=== PATIENT | male | born 1970 | race African-American/Black ===

== ENCOUNTER 2021-07-10 19:09 | Inpatient (IN) | payer MEDICARE, MEDICAID, SELFPAY ==
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
[2021-07-10 22:35] VITALS: BP 181/102; PULSE 65; RESP 20; TEMP 36.6; O2SAT 100
[2021-07-10 22:55] VITALS: BP 181/102; PULSE 65
[2021-07-10] MEDS: amLODIPine Besylate 5 MG TABLET PO (22:55)
[2021-07-11] VITALS (8 sets, daily range): BP systolic 118–147; BP diastolic 69–107; PULSE 68–92; RESP 16–19; TEMP 36.1–36.7; O2SAT 97–100
[2021-07-11] MEDS: Prazosin HCL 1 MG CAPSULE 4 MG PO ×2 (00:30→20:21)
[2021-07-11] MEDS: QUEtiapine Fumarate 300 MG TABLET PO (00:31)
[2021-07-11] MEDS: Metoprolol Succinate ER 100 MG TAB.ER.24H PO ×2 (00:31→20:30)
[2021-07-11] MEDS: Mirtazapine 30 MG TABLET PO (00:32)
[2021-07-11] MEDS: Mirtazapine 15 MG TABLET PO (00:32)
[2021-07-11] MEDS: hydrOXYzine HCL 25 MG TABLET PO ×2 (02:34→22:51)
[2021-07-11] MEDS: Omeprazole 20 MG CAPSULE.DR PO (08:28)
[2021-07-11] MEDS: Benztropine Mesylate 0.5 MG TABLET PO ×2 (08:29→20:21)
[2021-07-11] MEDS: Gabapentin 400 MG CAPSULE 800 MG PO ×3 (08:29→20:21)
[2021-07-11] MEDS: hydroCHLOROthiazide 25 MG TABLET PO (08:34)
[2021-07-11] MEDS: Acetaminophen 325 MG TABLET 650 MG PO ×2 (09:58→18:23)
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
[2021-07-11] MEDS: Divalproex Sodium ER 250 MG TAB.ER.24H PO (20:21)
[2021-07-11] MEDS: traZODone HCL 50 MG TABLET 150 MG PO (20:21)
[2021-07-11] MEDS: OLANZapine 5 MG TABLET PO (20:21)
[2021-07-12 06:00] VITALS: BP 138/87; PULSE 79; RESP 20; TEMP 36.6; O2SAT 100
[2021-07-12] MEDS: Omeprazole 20 MG CAPSULE.DR PO (06:39)
[2021-07-12 08:30] VITALS: BP 134/73; PULSE 63; RESP 18; TEMP 36.6; O2SAT 98
[2021-07-12] MEDS: Gabapentin 400 MG CAPSULE 800 MG PO ×3 (08:57→20:49)
[2021-07-12] MEDS: hydroCHLOROthiazide 25 MG TABLET PO (08:58)
--- NOTE | 2021-07-12 12:50 | P.PNPSI_ITS ---
Subjective Subjective Date of Service: 07/12/21 Reason For Visit: Depression Interim History: med adherence. Is napping during the day and irritable at times. Endorses hallucinations. Chart reviewed. Noted suicidal gestures and substance use. Today reports that he is feeling slightly better. Sleep improving. Feels safe. Reports suicidal thoughts are lessening as are auditory hallucinations. Feels positive for medication changes that include Seroquel to Depakote, Remeron to trazodone and also Prolixin to Zyprexa. Medication Compliance: Yes Side effects from medications: No Review of Systems Acute medical concerns: No Review of Systems Review of Systems Noncontributory Mental Status Exam Mental Status Exam Narrative: pleasant upon awakening. Organized. Alert and oriented. Restricted affect. Reports intermittent suicidal thoughts but no plans or intent and feels safe and supported on the unit. No HI. Endorses hallucinations that are improving. Reports feeling safe. No overt paranoia. Insight judgment okay Diagnostics Vital Signs (24Hr): Vital Signs - 24 hr 07/11/21 18:00 07/11/21 20:21 07/11/21 20:30 Temperature 96.9 F Pulse Rate 84 84 84 Respiratory Rate 19 Blood Pressure 140/99 H 140/99 H 140/99 H Pulse Oximetry 100 07/12/21 06:00 Temperature 98 F Pulse Rate 79 Respiratory Rate 20 Blood Pressure 138/87 Pulse Oximetry 100 Medications Medications Current Medications Generic Name Dose Route Start Last Admin Trade Name Freq PRN Reason Stop Dose Admin Acetaminophen 650 mg 07/10/21 19:50 07/11/21 18:23 Acetaminophen 325 Mg Tablet PO 650 mg Q6H PRN Administration Headache/Pain Mild Scale (1-3) Al Hydroxide/Mg Hydroxide 30 ml 07/10/21 19:50 Magnesium Hydrox/Alum Hydrox 30 Ml Oral.Susp PO Q6H PRN Heartburn/Nausea Chlorpromazine HCl 50 mg 07/11/21 18:21 Chlorpromazine Hcl 25 Mg Tablet PO BEDTIME PRN agitation, sleep Divalproex Sodium 250 mg 07/11/21 21:00 07/11/21 20:21 Divalproex Sodium Er 250 Mg Tab.Er.24h PO 250 mg BEDTIME PALMER Administration Gabapentin 800 mg 07/11/21 09:00 07/12/21 08:57 Gabapentin 400 Mg Capsule PO 800 mg TID PALMER Administration Hydrochlorothiazide 25 mg 07/11/21 09:00 07/12/21 08:58 Hydrochlorothiazide 25 Mg Tablet PO 25 mg DAILY PALMER Administration Protocol Hydroxyzine HCl 25 mg 07/10/21 19:50 07/11/21 22:51 Hydroxyzine Hcl 25 Mg Tablet PO 25 mg BEDTIME PRN Administration Anxiety Magnesium Hydroxide 30 ml 07/10/21 19:50 Milk Of Magnesia 30 Ml Oral.Susp PO DAILY PRN Constipation Metoprolol Succinate 100 mg 07/10/21 23:00 07/11/21 20:30 Metoprolol Succinate Er 100 Mg Tab.Er.24h PO 100 mg BEDTIME PALMER Administration Protocol Nicotine Polacrilex 2 mg 07/10/21 19:50 Nicotine Polacrilex 2 Mg Gum BUCCAL Q2H PRN Nicotine Cravings Olanzapine 5 mg 07/11/21 21:00 07/11/21 20:21 Olanzapine 5 Mg Tablet PO 5 mg BEDTIME PALMER Administration Omeprazole 20 mg 07/11/21 06:30 07/12/21 06:39 Omeprazole 20 Mg Capsule. PO 20 mg DAILY@0630 PALMER Administration Prazosin HCl 4 mg 07/11/21 21:00 07/11/21 20:21 Prazosin Hcl 1 Mg Capsule PO 4 mg BEDTIME PALMER Administration Protocol Trazodone HCl 150 mg 07/11/21 21:00 07/11/21 20:21 Trazodone Hcl 50 Mg Tablet PO 150 mg BEDTIME PALMER Administration Allergies Allergies Allergy/AdvReac Type Severity Reaction Status Date / Time lisinopril Allergy Unknown unknown Uncoded 07/10/21 19:50 Assessment & Plan Assessment & Plan (1) Bipolar 1 disorder, depressed: Status: Acute Code(s): F31.9 - Bipolar disorder, unspecified (2) Unspecified schizophrenia, chronic condition with acute exacerbation: Status: Acute Code(s): F20.9 - Schizophrenia, unspecified Assessment and Plan: Dae is a 51 y.o. Male who carries a diagnosis of unspecified bipolar disorder, history of depression, and psychosis. 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 He is currently presenting with sx of depression, SI without plan or intent, anxiety, AH, hyposomnia, and agitation. He has a hx of non-adherence with OP services, has not been on his meds in several days, last filled at ED. Recent crack cocaine use. Says he wants to be put back on trazodone and depakote as these have helped with sleep in the past. Plan: 1. Discontinue seroquel 300 mg QHS due to reported lack of efficacy. Start depakote ER 250 mg QHS, titrate up as tolerated for dose response for mood stab ility. 2. Discontinue remeron 45 mg due to reported lack of efficacy. Start trazodone 150 mg QHS for insomnia. 3. Discontinue prolixin 10 mg QAM due to non-adherence, reported lack of efficacy. Discontinue cogentin 0.5 mg BID. Start zyprexa 5 mg QHS, titrate up as tolerated for dose response for AH. 4. Continue prazosin 4 mg QHS for hyperarousal 5. Continue gabapentin 800 mg TID for mood stability, says they help with AH 6. start thorazine 50 mg QHS PRN for agitation, poor sleep. 7. Monitor response to medications. Monitor for safety in the milieu. Discharge on stabilization. Patient seen. Chart reviewed. Discussed with team. Obtain collateral contact info?as needed 07/12/2021: No changes to treatment plan as per primary team Greater than 50% of the session was spent on counseling and/or coordination of care Reason for contiued inpatient stay Substantial Risk for: harm to self
[2021-07-12] MEDS: Acetaminophen 325 MG TABLET 650 MG PO ×2 (13:10→21:43)
[2021-07-12 18:00] VITALS: BP 137/81; PULSE 88; RESP 16; TEMP 36.1
[2021-07-12 20:48] VITALS: BP 137/81; PULSE 88
[2021-07-12] MEDS: Prazosin HCL 1 MG CAPSULE 4 MG PO (20:48)
[2021-07-12 20:49] VITALS: BP 137/81; PULSE 88
[2021-07-12] MEDS: Divalproex Sodium ER 250 MG TAB.ER.24H PO (20:49)
[2021-07-12] MEDS: Metoprolol Succinate ER 100 MG TAB.ER.24H PO (20:49)
[2021-07-12] MEDS: OLANZapine 5 MG TABLET PO (20:49)
[2021-07-12] MEDS: traZODone HCL 50 MG TABLET 150 MG PO (20:49)
[2021-07-12] MEDS: hydrOXYzine HCL 25 MG TABLET PO (20:57)
[2021-07-12] MEDS: chlorproMAZINE HCl 25 MG TABLET 50 MG PO (23:06)
[2021-07-13] MEDS: Omeprazole 20 MG CAPSULE.DR PO (05:49)
[2021-07-13 05:58] VITALS: BP 111/59; PULSE 63; RESP 20; TEMP 36.5; O2SAT 99
[2021-07-13] MEDS: hydroCHLOROthiazide 25 MG TABLET PO (08:17)
[2021-07-13] MEDS: Gabapentin 400 MG CAPSULE 800 MG PO ×3 (08:17→19:28)
[2021-07-13] MEDS: Acetaminophen 325 MG TABLET 650 MG PO ×2 (08:24→19:32)
[2021-07-13 08:29] VITALS: BP 122/85; PULSE 62; RESP 16; TEMP 36.5; O2SAT 98
--- NOTE | 2021-07-13 11:46 | HO.PSYCHPN ---
Subjective Subjective Date of Service: 07/13/21 Reason For Visit: Depression Interim History: med adherence. Is napping during the day and less irritable. Endorses hallucinations, but feeling slightly better. Sleep poor with nighthmares- discussed prazosin. Feels safe. Reports suicidal thoughts are lessening as are auditory hallucinations. Feels positive for medication changes that include Seroquel to Depakote, Remeron to trazodone and also Prolixin to Zyprexa. Medication Compliance: Yes Side effects from medications: No Review of Systems Acute medical concerns: No Review of Systems Review of Systems Noncontributory Yes all other systems are reviewed and are negative Mental Status Exam Mental Status Exam Narrative: pleasant upon awakening. Organized. Alert and oriented. Restricted affect. Reports intermittent suicidal thoughts but no plans or intent and feels safe and supported on the unit. No HI. Endorses hallucinations that are improving. Reports feeling safe. No overt paranoia. Insight judgment okay Diagnostics Vital Signs (24Hr): Vital Signs - 24 hr 07/12/21 18:00 07/12/21 20:48 07/12/21 20:49 Temperature 97 F Pulse Rate 88 88 88 Respiratory Rate 16 Blood Pressure 137/81 137/81 137/81 Pulse Oximetry 07/13/21 05:58 07/13/21 08:29 Temperature 97.7 F 97.7 F Pulse Rate 63 62 Respiratory Rate 20 16 Blood Pressure 111/59 L 122/85 Pulse Oximetry 99 98 Medications Medications Current Medications Generic Name Dose Route Start Last Admin Trade Name Freq PRN Reason Stop Dose Admin Acetaminophen 650 mg 07/10/21 19:50 07/13/21 08:24 Acetaminophen 325 Mg Tablet PO 650 mg Q6H PRN Administration Headache/Pain Mild Scale (1-3) Al Hydroxide/Mg Hydroxide 30 ml 07/10/21 19:50 Magnesium Hydrox/Alum Hydrox 30 Ml Oral.Susp PO Q6H PRN Heartburn/Nausea Chlorpromazine HCl 50 mg 07/11/21 18:21 07/12/21 23:06 Chlorpromazine Hcl 25 Mg Tablet PO 50 mg BEDTIME PRN Administration agitation, sleep Divalproex Sodium 250 mg 07/11/21 21:00 07/12/21 20:49 Divalproex Sodium Er 250 Mg Tab.Er.24h PO 250 mg BEDTIME PALMER Administration Gabapentin 800 mg 07/11/21 09:00 07/13/21 08:17 Gabapentin 400 Mg Capsule PO 800 mg TID PALMER Administration Hydrochlorothiazide 25 mg 07/11/21 09:00 07/13/21 08:17 Hydrochlorothiazide 25 Mg Tablet PO 25 mg DAILY PALMER Administration Protocol Hydroxyzine HCl 25 mg 07/10/21 19:50 07/12/21 20:57 Hydroxyzine Hcl 25 Mg Tablet PO 25 mg BEDTIME PRN Administration Anxiety Magnesium Hydroxide 30 ml 07/10/21 19:50 Milk Of Magnesia 30 Ml Oral.Susp PO DAILY PRN Constipation Metoprolol Succinate 100 mg 07/10/21 23:00 07/12/21 20:49 Metoprolol Succinate Er 100 Mg Tab.Er.24h PO 100 mg BEDTIME PALMER Administration Protocol Nicotine Polacrilex 2 mg 07/10/21 19:50 Nicotine Polacrilex 2 Mg Gum BUCCAL Q2H PRN Nicotine Cravings Olanzapine 5 mg 07/11/21 21:00 07/12/21 20:49 Olanzapine 5 Mg Tablet PO 5 mg BEDTIME PALMER Administration Omeprazole 20 mg 07/11/21 06:30 07/13/21 05:49 Omeprazole 20 Mg Capsule. PO 20 mg DAILY@0630 PALMER Administration Prazosin HCl 4 mg 07/11/21 21:00 07/12/21 20:48 Prazosin Hcl 1 Mg Capsule PO 4 mg BEDTIME PALMER Administration Protocol Trazodone HCl 150 mg 07/11/21 21:00 07/12/21 20:49 Trazodone Hcl 50 Mg Tablet PO 150 mg BEDTIME PALMER Administration Allergies Allergies Allergy/AdvReac Type Severity Reaction Status Date / Time lisinopril Allergy Unknown unknown Uncoded 07/10/21 19:50 Assessment & Plan Assessment & Plan (1) Bipolar 1 disorder, depressed: Status: Acute Code(s): F31.9 - Bipolar disorder, unspecified (2) Unspecified schizophrenia, chronic condition with acute exacerbation: Status: Acute Code(s): F20.9 - Schizophrenia, unspecified Assessment and Plan: Dae is a 51 y.o. Male who carries a diagnosis of unspecified bipolar disorder, history of depression, and psychosis. 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 He is currently presenting with sx of depression, SI without plan or intent, anxiety, AH, hyposomnia, and agitation. He has a hx of non-adherence with OP services, has not been on his meds in several days, last filled at ED. Recent crack cocaine use. Says he wants to be put back on trazodone and depakote as these have helped with sleep in the past. Plan: 1. Discontinue seroquel 300 mg QHS due to reported lack of efficacy. Start depakote ER 250 mg QHS, titrate up as tolerated for dose response for mood stability. 2. Discontinue remeron 45 mg due to reported lack of efficacy. Start trazodone 150 mg QHS for insomnia. 3. Discontinue prolixin 10 mg QAM due to non-adherence, reported lack of efficacy. Discontinue cogentin 0.5 mg BID. Start zyprexa 5 mg QHS, titrate up as tolerated for dose response for AH. 4. Continue prazosin 4 mg QHS for hyperarousal 5. Continue gabapentin 800 mg TID for mood stability, says they help with AH 6. start thorazine 50 mg QHS PRN for agitation, poor sleep. 7. Monitor response to medications. Monitor for safety in the milieu. Discharge on stabilization. Patient seen. Chart reviewed. Discussed with team. Obtain collateral contact info?as needed 07/13/2021: Start prazosin 2mg, otherwise no changes to treatment plan as per primary team Greater than 50% of the session was spent on counseling and/or coordination of care Reason for contiued inpatient stay Substantial Risk for: harm to self
[2021-07-13 16:20] VITALS: BP 119/81; PULSE 95; TEMP 37.1
[2021-07-13 19:28] VITALS: BP 144/78; PULSE 104
[2021-07-13] MEDS: Metoprolol Succinate ER 100 MG TAB.ER.24H PO (19:28)
[2021-07-13] MEDS: OLANZapine 5 MG TABLET PO (19:28)
[2021-07-13] MEDS: traZODone HCL 50 MG TABLET 150 MG PO (19:28)
[2021-07-13] MEDS: Prazosin HCL 5 MG CAPSULE PO (19:28)
[2021-07-13] MEDS: Divalproex Sodium ER 250 MG TAB.ER.24H PO (19:28)
[2021-07-13] MEDS: hydrOXYzine HCL 25 MG TABLET PO (19:49)
[2021-07-14] MEDS: Omeprazole 20 MG CAPSULE.DR PO (05:50)
[2021-07-14 06:00] VITALS: BP 118/85; PULSE 87; RESP 18; TEMP 36.9; O2SAT 99
[2021-07-14] MEDS: hydroCHLOROthiazide 25 MG TABLET PO (08:01)
[2021-07-14] MEDS: Gabapentin 400 MG CAPSULE 800 MG PO ×3 (08:01→20:54)
--- NOTE | 2021-07-14 12:07 | HO.PSYCHPN ---
Subjective Subjective Date of Service: 07/14/21 Reason For Visit: Depression Interim History: med adherent. Feels like sleep is impacted last night by having caffeine and therefore of most of the night. Reports mood is improving. Still having hallucinations. Less frequent and intense SI. Feels safe. Was asking about tramadol and would like to discuss this with his primary team. As per [facility] this was last prescribed in November [address] Pérez from [place]. Medication Compliance: Yes Side effects from medications: No Review of Systems Acute medical concerns: No Review of Systems Review of Systems Noncontributory Yes all other systems are reviewed and are negative Mental Status Exam Mental Status Exam Narrative: Pleasant day room initially. Organized. Alert and oriented. Restricted affect. Reports intermittent suicidal thoughts but no plans or intent and feels safe and supported on the unit. No HI. Endorses hallucinations that are improving. Reports feeling safe. No overt paranoia. Insight judgment okay Diagnostics Vital Signs (24Hr): Vital Signs - 24 hr 07/13/21 16:20 07/13/21 19:28 07/14/21 06:00 Temperature 98.8 F 98.5 F Pulse Rate 95 104 H 87 Respiratory Rate 18 Blood Pressure 119/81 144/78 H 118/85 Pulse Oximetry 99 Medications Medications Current Medications Generic Name Dose Route Start Last Admin Trade Name Freq PRN Reason Stop Dose Admin Acetaminophen 650 mg 07/10/21 19:50 07/13/21 19:32 Acetaminophen 325 Mg Tablet PO 650 mg Q6H PRN Administration Headache/Pain Mild Scale (1-3) Al Hydroxide/Mg Hydroxide 30 ml 07/10/21 19:50 Magnesium Hydrox/Alum Hydrox 30 Ml Oral.Susp PO Q6H PRN Heartburn/Nausea Chlorpromazine HCl 50 mg 07/11/21 18:21 07/12/21 23:06 Chlorpromazine Hcl 25 Mg Tablet PO 50 mg BEDTIME PRN Administration agitation, sleep Divalproex Sodium 250 mg 07/11/21 21:00 07/13/21 19:28 Divalproex Sodium Er 250 Mg Tab.Er.24h PO 250 mg BEDTIME PALMER Administration Gabapentin 800 mg 07/11/21 09:00 07/14/21 08:01 Gabapentin 400 Mg Capsule PO 800 mg TID PALMER Administration Hydrochlorothiazide 25 mg 07/11/21 09:00 07/14/21 08:01 Hydrochlorothiazide 25 Mg Tablet PO 25 mg DAILY PALMER Administration Protocol Hydroxyzine HCl 25 mg 07/10/21 19:50 07/13/21 19:49 Hydroxyzine Hcl 25 Mg Tablet PO 25 mg BEDTIME PRN Administration Anxiety Magnesium Hydroxide 30 ml 07/10/21 19:50 Milk Of Magnesia 30 Ml Oral.Susp PO DAILY PRN Constipation Metoprolol Succinate 100 mg 07/10/21 23:00 07/13/21 19:28 Metoprolol Succinate Er 100 Mg Tab.Er.24h PO 100 mg BEDTIME PALMER Administration Protocol Nicotine Polacrilex 2 mg 07/10/21 19:50 Nicotine Polacrilex 2 Mg Gum BUCCAL Q2H PRN Nicotine Cravings Olanzapine 5 mg 07/11/21 21:00 07/13/21 19:28 Olanzapine 5 Mg Tablet PO 5 mg BEDTIME PALMER Administration Omeprazole 20 mg 07/11/21 06:30 07/14/21 05:50 Omeprazole 20 Mg Capsule. PO 20 mg DAILY@0630 PALMER Administration Prazosin HCl 5 mg 07/13/21 21:00 07/13/21 19:28 Prazosin Hcl 5 Mg Capsule PO 5 mg BEDTIME PALMER Administration Protocol Trazodone HCl 150 mg 07/11/21 21:00 07/13/21 19:28 Trazodone Hcl 50 Mg Tablet PO 150 mg BEDTIME PALMER Administration Allergies Allergies Allergy/AdvReac Type Severity Reaction Status Date / Time lisinopril Allergy Unknown unknown Uncoded 07/10/21 19:50 Assessment & Plan Assessment & Plan (1) Bipolar 1 disorder, depressed: Status: Acute Code(s): F31.9 - Bipolar disorder, unspecified (2) Unspecified schizophrenia, chronic condition with acute exacerbation: Status: Acute Code(s): F20.9 - Schizophrenia, unspecified Assessment and Plan: Dae is a 51 y.o. Male who carries a diagnosis of unspecified bipolar disorder, history of depression, and psychosis. 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 He is currently presenting with sx of depression, SI without plan or intent, anxiety, AH, hyposomnia, and agitation. He has a hx of non-adherence with OP services, has not been on his meds in several days, last filled at ED. Recent crack cocaine use. Says he wants to be put back on trazodone and depakote as these have helped with sleep in the past. Plan: 1. Discontinue seroquel 300 mg QHS due to reported lack of efficacy. Start depakote ER 250 mg QHS, titrate up as tolerated for dose response for mood stability. 2. Discontinue remeron 45 mg due to reported lack of efficacy. Start trazodone 150 mg QHS for insomnia. 3. Discontinue prolixin 10 mg QAM due to non-adherence, reported lack of efficacy. Discontinue cogentin 0.5 mg BID. Start zyprexa 5 mg QHS, titrate up as tolerated for dose response for AH. 4. Continue prazosin 4 mg QHS for hyperarousal 5. Continue gabapentin 800 mg TID for mood stability, says they help with AH 6. start thorazine 50 mg QHS PRN for agitation, poor sleep. 7. Monitor response to medications. Monitor for safety in the milieu. Discharge on stabilization. Patient seen. Chart reviewed. Discussed with team. Obtain collateral contact info?as needed 07/14/2021: Was asking about tramadol and would like to discuss this with his primary team. As per [facility] this was last prescribed in November [address] Pérez from [place]. Otherwise no changes to treatment plan as per primary team Greater than 50% of the session was spent on counseling and/or coordination of care Reason for contiued inpatient stay Substantial Risk for: harm to self
[2021-07-14] MEDS: Acetaminophen 325 MG TABLET 650 MG PO ×2 (12:21→18:35)
[2021-07-14 16:30] VITALS: BP 112/77; PULSE 73; TEMP 36.3
[2021-07-14] MEDS: hydrOXYzine HCL 25 MG TABLET PO (20:54)
[2021-07-14 20:55] VITALS: BP 161/99; PULSE 77
[2021-07-14] MEDS: traZODone HCL 50 MG TABLET 150 MG PO (20:55)
[2021-07-14] MEDS: Metoprolol Succinate ER 100 MG TAB.ER.24H PO (20:55)
[2021-07-14] MEDS: OLANZapine 5 MG TABLET PO (20:55)
[2021-07-14] MEDS: Divalproex Sodium ER 250 MG TAB.ER.24H PO (20:55)
[2021-07-14] MEDS: Prazosin HCL 5 MG CAPSULE PO (20:55)
[2021-07-15 06:00] VITALS: BP 178/117; PULSE 82; RESP 16; TEMP 36.3; O2SAT 100
[2021-07-15] MEDS: hydroCHLOROthiazide 25 MG TABLET PO (09:20)
[2021-07-15] MEDS: Gabapentin 400 MG CAPSULE 800 MG PO ×3 (09:21→21:09)
[2021-07-15] MEDS: Omeprazole 20 MG CAPSULE.DR PO (09:21)
[2021-07-15] MEDS: Acetaminophen 325 MG TABLET 650 MG PO ×2 (12:17→18:23)
--- NOTE | 2021-07-15 16:17 | P.PNPSI_ITS ---
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 Also reports AH which is ongoing (and present even w/out depression). Pt says he would like meds increased to address AH and agrees to increasing Zyprexa to 10 mg qhs. He also asks for Tramdol for chronic leg and back pain and says my leg gets numb and hurts all over... however pt does not now etiology of pain. He accepts the need to go to PCP for tx of chronic pain. Mental Status Exam Mental Status Exam Narrative: Pt is alert and oriented; behavior is marginally cooperative, lying face down in bed; he is calm and not in distress; dressed in casual attire with adequate hygiene; mood is described as depressed and affect congruent; eye contact avoidant; Speech is a little slowed; psychomotor retardation present; thought process is goal directed but concrete. Thought content is on getting tx ; otherwise TC relevant to pertinent topics and without any delusional content, paranoid ideations or grandiosity; reports intermittent SI but says this is passive and without plans or intent; no HI; patient reports auditory hallucination; ?Patients insight and judgment appear impaired. ? Diagnostics Vital Signs (24Hr): Vital Signs - 24 hr 07/14/21 16:30 07/14/21 20:55 07/15/21 06:00 Temperature 97.4 F 97.3 F Pulse Rate 73 77 82 Respiratory Rate 16 Blood Pressure 112/77 161/99 H 178/117 H Pulse Oximetry 100 Medications Medications Current Medications Generic Name Dose Route Start Last Admin Trade Name Freq PRN Reason Stop Dose Admin Acetaminophen 650 mg 07/10/21 19:50 07/15/21 12:17 Acetaminophen 325 Mg Tablet PO 650 mg Q6H PRN Administration Headache/Pain Mild Scale (1-3) Al Hydroxide/Mg Hydroxide 30 ml 07/10/21 19:50 Magnesium Hydrox/Alum Hydrox 30 Ml Oral.Susp PO Q6H PRN Heartburn/Nausea Chlorpromazine HCl 50 mg 07/11/21 18:21 07/12/21 23:06 Chlorpromazine Hcl 25 Mg Tablet PO 50 mg BEDTIME PRN Administration agitation, sleep Divalproex Sodium 250 mg 07/11/21 21:00 07/14/21 20:55 Divalproex Sodium Er 250 Mg Tab.Er.24h PO 250 mg BEDTIME PALMER Administration Gabapentin 800 mg 07/11/21 09:00 07/15/21 15:06 Gabapentin 400 Mg Capsule PO 800 mg TID PALMER Administration Hydrochlorothiazide 25 mg 07/11/21 09:00 07/15/21 09:20 Hydrochlorothiazide 25 Mg Tablet PO 25 mg DAILY PALMER Administration Protocol Hydroxyzine HCl 25 mg 07/10/21 19:50 07/14/21 20:54 Hydroxyzine Hcl 25 Mg Tablet PO 25 mg BEDTIME PRN Administration Anxiety Magnesium Hydroxide 30 ml 07/10/21 19:50 Milk Of Magnesia 30 Ml Oral.Susp PO DAILY PRN Constipation Metoprolol Succinate 100 mg 07/10/21 23:00 07/14/21 20:55 Metoprolol Succinate Er 100 Mg Tab.Er.24h PO 100 mg BEDTIME PALMER Administration Protocol Nicotine Polacrilex 2 mg 07/10/21 19:50 Nicotine Polacrilex 2 Mg Gum BUCCAL Q2H PRN Nicotine Cravings Olanzapine 5 mg 07/11/21 21:00 07/14/21 20:55 Olanzapine 5 Mg Tablet PO 5 mg BEDTIME PALMER Administration Omeprazole 20 mg 07/11/21 06:30 07/15/21 09:21 Omeprazole 20 Mg Capsule.Dr PO 20 mg DAILY@0630 PALMER Administration Prazosin HCl 5 mg 07/13/21 21:00 07/14/21 20:55 Prazosin Hcl 5 Mg Capsule PO 5 mg BEDTIME PALMER Administration Protocol Trazodone HCl 150 mg 07/11/21 21:00 07/14/21 20:55 Trazodone Hcl 50 Mg Tablet PO 150 mg BEDTIME PALMER Administration Allergies Allergies Allergy/AdvReac Type Severity Reaction Status Date / Time lisinopril Allergy Unknown unknown Uncoded 07/10/21 19:50 Assessment & Plan Assessment & Plan (1) Bipolar 1 disorder, depressed: Status: Acute Code(s): F31.9 - Bipolar disorder, unspecified (2) Unspecified schizophrenia, chronic condition with acute exacerbation: Status: Acute Code(s): F20.9 - Schizophrenia, unspecified Assessment and Plan: Dae is a 51 y.o. Male who carries a diagnosis of unspecified bipolar disorder, history of depression, and psychosis. 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 He is currently presenting with sx of depression, SI without plan or intent, anxiety, AH, hyposomnia, and agitation. He has a hx of non-adherence with OP services, has not been on his meds in several days, last filled at ED. Recent crack cocaine use. Will increase Zyprexa to 10 mg q.h.s. for continued auditory hallucinations Plan: On admission Started depakote ER 250 mg QHS, titrate up as tolerated for dose re sponse for mood stability. On admission Started trazodone 150 mg QHS for insomnia. (Discontinued remeron 45 mg due to reported lack of efficacy) On admission Started zyprexa 5 mg QHS, titrate up as tolerated for dose response for AH. ( Discontinue prolixin 10 mg QAM due to non-adherence, reported lack of efficacy.) On admission Started thorazine 50 mg QHS PRN for agitation, poor sleep On admission Continued prazosin 4 mg QHS for hyperarousal On admission Continued gabapentin 800 mg TID for mood stability, says they help with AH On admission Discontinued cogentin 0.5 mg BID. On admission Discontinued seroquel 300 mg QHS due to reported lack of efficacy. Monitor response to medications. Monitor for safety in the milieu. Discharge on stabilization. Patient seen. Chart reviewed. Discussed with team. Obtain collateral contact info?as needed 07/14/2021: Was asking about tramadol and would like to discuss this with his primary team. As per [facility] this was last prescribed in November [address] Pérez from [place]. Otherwise no changes to treatment plan as per primary team Greater than 50% of the session was spent on counseling and/or coordination of care Reason for contiued inpatient stay Substantial Risk for: rapid decompensation and med/psych decompensation
[2021-07-15 16:37] VITALS: BP 118/83; PULSE 72; TEMP 36.7; O2SAT 99
[2021-07-15] MEDS: hydrOXYzine HCL 25 MG TABLET PO (21:09)
[2021-07-15] MEDS: traZODone HCL 50 MG TABLET 150 MG PO (21:09)
[2021-07-15 21:10] VITALS: BP 149/102; PULSE 88
[2021-07-15] MEDS: Prazosin HCL 5 MG CAPSULE PO (21:10)
[2021-07-15] MEDS: Divalproex Sodium ER 250 MG TAB.ER.24H PO (21:10)
[2021-07-15] MEDS: OLANZapine 10 MG TABLET PO (21:10)
[2021-07-15 21:11] VITALS: BP 149/102; PULSE 88
[2021-07-15] MEDS: Metoprolol Succinate ER 100 MG TAB.ER.24H PO (21:11)
[2021-07-16] MEDS: Acetaminophen 325 MG TABLET 650 MG PO ×2 (06:45→16:01)
[2021-07-16] MEDS: Omeprazole 20 MG CAPSULE.DR PO (06:46)
[2021-07-16 08:30] VITALS: BP 127/72; PULSE 67; RESP 16; TEMP 37.2; O2SAT 100
[2021-07-16] MEDS: Gabapentin 400 MG CAPSULE 800 MG PO ×3 (08:53→21:21)
[2021-07-16] MEDS: hydroCHLOROthiazide 25 MG TABLET PO (08:53)
[2021-07-16 13:17] VITALS: BP 122/72; PULSE 80
[2021-07-16 18:00] VITALS: BP 139/101; PULSE 99; RESP 18; TEMP 36.3; O2SAT 100
[2021-07-16 21:20] VITALS: BP 150/87; PULSE 95; RESP 18
[2021-07-16 21:21] VITALS: BP 150/87; PULSE 95
[2021-07-16] MEDS: Prazosin HCL 5 MG CAPSULE PO (21:21)
[2021-07-16] MEDS: hydrOXYzine HCL 25 MG TABLET PO (21:21)
[2021-07-16 21:22] VITALS: BP 150/87; PULSE 87
[2021-07-16] MEDS: Metoprolol Succinate ER 100 MG TAB.ER.24H PO (21:22)
[2021-07-16] MEDS: OLANZapine 10 MG TABLET PO (21:22)
[2021-07-16] MEDS: traZODone HCL 50 MG TABLET 150 MG PO (21:23)
[2021-07-16] MEDS: Divalproex Sodium ER 250 MG TAB.ER.24H PO (21:23)
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
[2021-07-17] MEDS: Acetaminophen 325 MG TABLET 650 MG PO ×3 (00:35→23:42)
[2021-07-17] MEDS: hydroCHLOROthiazide 25 MG TABLET PO (08:14)
[2021-07-17] MEDS: Gabapentin 400 MG CAPSULE 800 MG PO ×3 (08:17→21:17)
[2021-07-17] MEDS: Omeprazole 20 MG CAPSULE.DR PO (08:17)
[2021-07-17] MEDS: traMADoL HCL 50 MG TABLET 25 MG PO (15:40)
[2021-07-17 17:33] VITALS: BP 122/85; PULSE 89; RESP 16
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
[2021-07-17] MEDS: Divalproex Sodium ER 250 MG TAB.ER.24H PO (21:17)
[2021-07-17] MEDS: traZODone HCL 50 MG TABLET 150 MG PO (21:17)
[2021-07-17] MEDS: hydrOXYzine HCL 25 MG TABLET PO (21:17)
[2021-07-17] MEDS: OLANZapine 10 MG TABLET PO (21:18)
[2021-07-17] MEDS: Melatonin 3 MG TABLET 9 MG PO (21:18)
[2021-07-17 21:22] VITALS: BP 149/95; PULSE 72
[2021-07-17] MEDS: Metoprolol Succinate ER 100 MG TAB.ER.24H PO (21:22)
[2021-07-17 21:24] VITALS: BP 149/95; PULSE 78
[2021-07-17] MEDS: Prazosin HCL 5 MG CAPSULE PO (21:24)
[2021-07-18] MEDS: Omeprazole 20 MG CAPSULE.DR PO (05:37)
[2021-07-18 08:30] VITALS: BP 141/78; PULSE 100; RESP 16
[2021-07-18] MEDS: hydroCHLOROthiazide 25 MG TABLET PO (08:53)
[2021-07-18] MEDS: Gabapentin 400 MG CAPSULE 800 MG PO ×3 (08:53→22:35)
[2021-07-18] MEDS: Acetaminophen 325 MG TABLET 650 MG PO (09:10)
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
[2021-07-18 13:00] VITALS: BP 134/70; PULSE 82
[2021-07-18] MEDS: traMADoL HCL 50 MG TABLET 25 MG PO (13:09)
[2021-07-18 20:39] VITALS: RESP 16
[2021-07-18 22:33] VITALS: BP 144/93; PULSE 85
[2021-07-18] MEDS: Prazosin HCL 5 MG CAPSULE PO (22:33)
[2021-07-18 22:34] VITALS: BP 144/93; PULSE 85
[2021-07-18] MEDS: OLANZapine 10 MG TABLET PO (22:34)
[2021-07-18] MEDS: traZODone HCL 50 MG TABLET 150 MG PO (22:34)
[2021-07-18] MEDS: Metoprolol Succinate ER 100 MG TAB.ER.24H PO (22:34)
[2021-07-18] MEDS: Divalproex Sodium ER 250 MG TAB.ER.24H 750 MG PO (22:35)
[2021-07-18] MEDS: Melatonin 3 MG TABLET 9 MG PO (22:35)
[2021-07-19] MEDS: traZODone HCL 100 MG TABLET PO (01:08)
[2021-07-19] MEDS: Omeprazole 20 MG CAPSULE.DR PO (05:23)
[2021-07-19 06:38] VITALS: BP 120/75; PULSE 80; RESP 18; TEMP 36.2; O2SAT 99
[2021-07-19 08:19] VITALS: BP 126/81; PULSE 76; TEMP 36.3; O2SAT 98
[2021-07-19] MEDS: Gabapentin 400 MG CAPSULE 800 MG PO ×3 (08:22→21:53)
[2021-07-19] MEDS: hydroCHLOROthiazide 25 MG TABLET PO (08:22)
[2021-07-19] MEDS: Acetaminophen 325 MG TABLET 650 MG PO ×2 (09:41→17:16)
[2021-07-19 13:00] VITALS: BP 112/65; PULSE 74
[2021-07-19 17:56] VITALS: BP 121/80; PULSE 80; RESP 18; TEMP 36.4; O2SAT 99
[2021-07-19 21:53] VITALS: BP 131/75; PULSE 76
[2021-07-19] MEDS: Divalproex Sodium ER 250 MG TAB.ER.24H 750 MG PO (21:53)
[2021-07-19] MEDS: Prazosin HCL 5 MG CAPSULE PO (21:53)
[2021-07-19] MEDS: Melatonin 3 MG TABLET 9 MG PO (21:53)
[2021-07-19] MEDS: OLANZapine 10 MG TABLET PO (21:53)
[2021-07-19 21:54] VITALS: BP 131/75; PULSE 76
[2021-07-19] MEDS: traZODone HCL 50 MG TABLET 150 MG PO (21:54)
[2021-07-19] MEDS: Metoprolol Succinate ER 100 MG TAB.ER.24H PO (21:54)
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
[2021-07-20] MEDS: traZODone HCL 100 MG TABLET PO (01:07)
[2021-07-20] MEDS: Omeprazole 20 MG CAPSULE.DR PO (06:10)
[2021-07-20] MEDS: Acetaminophen 325 MG TABLET 650 MG PO ×2 (06:10→21:21)
[2021-07-20 06:51] VITALS: BP 131/77; PULSE 68; TEMP 36.7; O2SAT 95
[2021-07-20 08:50] VITALS: BP 109/72; PULSE 84; TEMP 36.8
[2021-07-20] MEDS: Gabapentin 400 MG CAPSULE 800 MG PO ×3 (10:08→21:18)
[2021-07-20] MEDS: hydroCHLOROthiazide 25 MG TABLET PO (10:08)
[2021-07-20 13:00] VITALS: BP 124/75; PULSE 74
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
[2021-07-20 17:40] VITALS: BP 123/73; PULSE 96; RESP 16; TEMP 36; O2SAT 98
[2021-07-20 21:17] VITALS: BP 138/78; PULSE 80
[2021-07-20] MEDS: Prazosin HCL 5 MG CAPSULE PO (21:17)
[2021-07-20 21:18] VITALS: BP 138/78; PULSE 80
[2021-07-20] MEDS: Divalproex Sodium ER 250 MG TAB.ER.24H 750 MG PO (21:18)
[2021-07-20] MEDS: Metoprolol Succinate ER 100 MG TAB.ER.24H PO (21:18)
[2021-07-20] MEDS: traZODone HCL 50 MG TABLET 150 MG PO (21:19)
[2021-07-20] MEDS: OLANZapine 7.5 MG TABLET 15 MG PO (21:19)
[2021-07-21] MEDS: traZODone HCL 100 MG TABLET PO (01:43)
[2021-07-21] MEDS: Omeprazole 20 MG CAPSULE.DR PO (06:20)
[2021-07-21 06:52] VITALS: BP 120/79; PULSE 78; RESP 18; TEMP 36.3; O2SAT 96
[2021-07-21 08:09] LABS: MANUAL DIFF FLAG NO
[2021-07-21 08:12] LABS: Basophils Percent Auto 0.3 % (0-2); Eosinophils Absolute Auto 0.4 X10*3/uL (0.0-0.4); Eosinophils Percent Auto 5.6 % (0-4); Hematocrit 36.6 % (42-52); Hemoglobin 12.6 g/dl (14.0-18.0); Imm Gran Abs Auto 0.03 X10*3/uL (0.00-0.03); Imm Gran Pct Auto 0.5 % (0.0-0.4); Lymphocytes Absolute Auto 2.4 X10*3/uL (1.2-4.9); Lymphocytes Percent Auto 38.3 % (20-40); Mean Corpuscular HGB Conc 34.4 g/dl (31.0-36.0); Mean Corpuscular Hemoglobin 34.9 pg (27.0-33.0); Mean Corpuscular Volume 101.4 fL (80-98); Mean Platelet Volume 9.7 fL (9.4-12.4); Monocytes Absolute Auto 0.6 X10*3/uL (0.1-1.2); Monocytes Percent Auto 10.3 % (2-11); Neutrophils Absolute Auto 2.8 X10*3/uL (2.0-8.3); Platelet Count 259 X10*3/uL (160-400); Red Blood Count 3.61 X10*6/uL (4.60-5.80); Red Cell Distribution Width 14.1 % (11.0-16.0); White Blood Count 6.2 X10*3/uL (4.8-10.8)
[2021-07-21 08:28] LABS: Alanine Aminotransferase 32 U/L (0-40); Albumin Level 3.9 g/dL (3.5-5.0); Alkaline Phosphatase 56 U/L (39-117); Anion Gap 11 (12-20); Aspartate Amino Transferase 18 U/L (5-37); Bilirubin Total 0.2 mg/dL (0.0-1.0); Blood Urea Nitrogen 18 mg/dL (9-16); Calcium 9.6 mg/dL (8.4-10.2); Carbon Dioxide 28 mmol/L (22-29); Chloride 105 mmol/L (96-108); Estimated Glomerular Filt Rate > 60; Glucose Random 96 mg/dL (60-115); Potassium 4.7 mmol/L (3.3-5.1); Sodium 139 mmol/L (135-145); Total Protein 6.3 g/dL (6.5-8.0)
[2021-07-21 08:31] LABS: Valproate 59.9 mcg/mL (50.0-100.0)
[2021-07-21] MEDS: Gabapentin 400 MG CAPSULE 800 MG PO ×3 (09:51→22:14)
[2021-07-21] MEDS: hydroCHLOROthiazide 25 MG TABLET PO (09:51)
[2021-07-21] MEDS: Acetaminophen 325 MG TABLET 650 MG PO ×2 (09:51→22:19)
[2021-07-21 13:00] VITALS: BP 138/70; PULSE 77; RESP 18; TEMP 36.5; O2SAT 100
[2021-07-21] MEDS: traMADoL HCL 50 MG TABLET 25 MG PO (13:18)
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
[2021-07-21 18:00] VITALS: BP 131/81; PULSE 76; RESP 18; TEMP 36.6; O2SAT 100
[2021-07-21] MEDS: Melatonin 3 MG TABLET 9 MG PO (22:12)
[2021-07-21 22:13] VITALS: BP 134/82; PULSE 86
[2021-07-21] MEDS: traZODone HCL 50 MG TABLET 150 MG PO (22:13)
[2021-07-21] MEDS: Metoprolol Succinate ER 100 MG TAB.ER.24H PO (22:13)
[2021-07-21] MEDS: Divalproex Sodium ER 250 MG TAB.ER.24H 750 MG PO (22:13)
[2021-07-21 22:14] VITALS: BP 132/88; PULSE 82
[2021-07-21] MEDS: Prazosin HCL 5 MG CAPSULE PO (22:14)
[2021-07-21] MEDS: OLANZapine 7.5 MG TABLET 15 MG PO (22:14)
[2021-07-22] MEDS: traZODone HCL 100 MG TABLET PO (01:19)
[2021-07-22] MEDS: Omeprazole 20 MG CAPSULE.DR PO (06:02)
[2021-07-22 06:23] VITALS: BP 134/78; PULSE 68; TEMP 35.9; O2SAT 100
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
[2021-07-22] MEDS: Gabapentin 400 MG CAPSULE 800 MG PO (09:35)
[2021-07-22] MEDS: hydroCHLOROthiazide 25 MG TABLET PO (09:35)
[2021-07-22] MEDS: Acetaminophen 325 MG TABLET 650 MG PO (09:38)
[2021-07-22] MEDS: traMADoL HCL 50 MG TABLET 25 MG PO (11:22)
== END 2021-07-22 12:02 | disposition home or self-care (01) | DRG 885 ==
PROVIDERS: Registered Nurse; Admitting Provider Psychiatry & Neurology Psychiatry; Visit Provider Psychiatry & Neurology Psychiatry
DX: F25.1 Schizoaffective disorder, depressive type (principal); R45.851 Suicidal ideations; I10 Essential (primary) hypertension; K21.9 Gastro-esophageal reflux disease without esophagitis; F17.210 Nicotine dependence, cigarettes, uncomplicated; Z71.6 Tobacco abuse counseling; Z79.899 Other long term (current) drug therapy
CPT/HCPCS: 36415; 80053; 80164; 85025